=== PATIENT | female | born 1995 ===

== ENCOUNTER 2020-12-03 07:55 | Outpatient (CLI) | payer OTHER ==
[2020-12-03 18:22] LABS: SARS-CoV-2 PCR by NAA Not Detected (NotDetected)
== END 2020-12-03 07:56 | disposition home or self-care (01) ==
LOC: LABBT 07:55
PROVIDERS: ATTEND Obstetrics & Gynecology
DX: Z01.812 Encounter for preprocedural laboratory examination (principal); Z20.822 Contact with and (suspected) exposure to COVID-19
CPT/HCPCS: 87635; U0003; U0005

== ENCOUNTER 2020-12-06 19:30 | Inpatient (IN) | payer OTHER ==
[~2020-12-06 19:30] MED LIST: Bupivacaine HCl 0.25%/Epi 0.0005/PF 10 ML VIAL FS ONE
[2020-12-06] MEDS ORDERED: Promethazine HCl 25 MG/ML VIAL IM PRN (20:36)
[2020-12-06] MEDS ORDERED: hydrALAZINE 20 MG/ML VIAL SLOW IVP PRN (20:36)
[2020-12-06] MEDS ORDERED: Lidocaine 1% (PF) 30 ML VIAL SC PRN (20:36)
[2020-12-06] MEDS ORDERED: Acetaminophen/Codeine 30-300mg Tablet PO PRN ×2 (20:36)
[2020-12-06] MEDS ORDERED: NS / Oxytocin 40 units/1000ml 1,000 ML IV PRN (20:36)
[2020-12-06] MEDS ORDERED: Butorphanol Tartrate 1 MG/ML VIAL SLOW IVP PRN (20:36)
[2020-12-06] MEDS ORDERED: HYDROcodone/Acetaminophen 5/325 mg Tablet PO PRN (20:36)
[2020-12-06] MEDS ORDERED: Ibuprofen 800 MG TAB PO PRN (20:36)
[2020-12-06] MEDS: Lactated Ringer's 1,000 ML IV SCH (21:06)
[2020-12-06 21:26] LABS: Hemoglobin 13.4 g/dL (12.0-16.0); Mean Corpuscular HGB CONC 34.7 g/dL (32.0-36.0); Mean Corpuscular Hemoglobin 31.9 pg (27.0-31.0); Mean Corpuscular Volume 92.1 fL (78.0-98.0); Mean Platelet Volume 10.6 fL (7.4-10.4); Platelet Count 115 thou/uL (130-400); RBC Distribution Width 12.1 % (11.5-14.5); White Blood Cell (WBC) Count 10.1 thou/uL (4.8-10.8)
[2020-12-06] MEDS: NS w/ Oxytocin 30 units 500 ML IVPB SCH (21:41)
[2020-12-06 21:50] VITALS: BMI 29.2
[2020-12-06 22:03] LABS: Syphilis Antibody Nonreactive (Nonreactive); Syphilis Antibody Index 0.08 S/CO (<1.00 Non-Reactive)
[2020-12-06 23:00] LABS: HBSAg Index 0.19 S/CO (0-0.99); Hep B Surf Ag Non-Reactive S/CO (NonReactive)
--- NOTE | 2020-12-07 08:02 | PDOC.LDHP ---
Labor and Delivery H&P Chief complaint: scheduled induction (40 weeks IOL) HPI: Presents for IOL after valdez balloon placed in cervix in the office. Current gestational age (weeks): 40 Due date: 11/28/20 Grav: 1 Para: 0 Current complications: none Abnormal US findings: No Current medications: pre-nader vitamins Previous surgical history: none Allergies/Adverse Reactions: Allergies Allergy/AdvReac Type Severity Reaction Status Date / Time No Known Allergies Allergy Verified 12/06/20 21:11 Social history: none - Physical Exam Vital signs reviewed and normal: yes General: resting Heart: RRR Lungs: CTAB Abdomen: gravid Extremeties: no edema FHT: category 1 - Vaginal Exam cm dilated: 5 (arom w clear fluid on exam) Effacement: 50% Station: -1 - OB Labs Blood type: A RH: positive Antibody Screen: negative HIV: negative RPR: negative HEPSAg: negative 1 hour GCT: negative GBS: negative - Assessment L&D Assessment: elective induction at term - Plan Plan: admit to L&D -: IOL for 40.3 weeks, sp valdez bulb for mechanical dilation and ripening. AROM w clear fluid. Continue pitocin, FHT reassuring.
[2020-12-07] MEDS ORDERED: Fentanyl 4 mcg/Bup 0.1% Cadd 100 ML ONE ×3 (08:50→22:09)
[2020-12-07] MEDS ORDERED: Lactated Ringer's 500 ML IV PRN (09:28)
[2020-12-07] MEDS ORDERED: Naloxone HCl 0.4 mg/ml Vial IVP PRN ×2 (09:28)
[2020-12-07] MEDS ORDERED: diphenhydrAMINE 50 MG/ML VIAL IVP PRN (09:28)
[2020-12-07] MEDS ORDERED: Acetaminophen 325 MG TAB PO PRN (09:28)
[2020-12-07] MEDS ORDERED: Ondansetron PF 4 MG/2 ML Vial IVP PRN (09:28)
[2020-12-07] MEDS ORDERED: ePHEDrine 50 MG/ML VIAL SLOW IVP PRN (09:28)
[2020-12-07] MEDS ORDERED: Promethazine HCl 25 MG/ML VIAL IM PRN (09:28)
[2020-12-07] MEDS ORDERED: Communication Order-Pharmacy FS SCH (09:30)
[2020-12-07] MEDS: Lactated Ringer's 1,000 ML IV SCH ×2 (09:37→21:21)
[2020-12-07] MEDS: Ondansetron PF 4 MG/2 ML Vial IVP PRN ×2 (09:38→17:56)
[2020-12-07] MEDS: Fentanyl 4 mcg/Bupivacaine 0.1% Cassette 100 ML EPIDURAL SCH ×2 (15:45→15:46)
--- NOTE | 2020-12-07 17:10 | PDOC.LDPN ---
Labor & Delivery Progress Note - Subjective Subjective: comfortable - Objective Vital signs reviewed and normal: yes General: resting Dilation: 6 Effacement: 90% Station: -1 FHT: category 1 [place] contractions every: 2 IUPC placed: yes - Assessment (1) 40 weeks gestation of Code(s): Z3A.40 - 40 WEEKS GESTATION OF Current Visit: Yes Status: Acute Plan: continue plan of care -: Pt here for IOL. [place] balloon and AROM @ 0800 w SVE 4-5cm. At 1300 check pt cervix thin and anterior, consistent with labor. SVE now 5-6/90/-1 with minimal change suspected from the 1300 exam. Discussed continue to monitor, IUPC in place, pitocin @ 14 mu/min and FHT reassuring. Patient counseled to continue labor efforts at this time. RN will recheck in 2 hours and notify me of exam.
[2020-12-07] MEDS ORDERED: Calcium Carbonate 500 MG ChewTAB PO PRN (17:40)
[2020-12-07] MEDS: NS w/ Oxytocin 30 units 500 ML IVPB SCH (17:56)
[2020-12-08] MEDS: Fentanyl 4 mcg/Bupivacaine 0.1% Cassette 100 ML EPIDURAL SCH (02:36)
[2020-12-08] MEDS ORDERED: Misoprostol 200 MCG TAB ONE (03:09)
[2020-12-08] MEDS ORDERED: Methylergonovine 0.2 MG/ML VIAL ONE (03:10)
[2020-12-08] MEDS ORDERED: Carboprost 250 MCG/ML AMP ONE (03:10)
[2020-12-08] MEDS: NS w/ Oxytocin 30 units 500 ML IVPB SCH ×2 (03:32→04:14)
[2020-12-08] MEDS ORDERED: Lidocaine 1% (PF) 30 ML VIAL ONE (03:33)
--- NOTE | 2020-12-08 03:50 | PDOC.OPDEL ---
OB Operative/Delivery Note Delivery Dr/Surgeon: Juan Pre-Delivery Diagnosis: elective induction Procedure/Post Delivery Dx: spontaneous vaginal delivery Weeks gestation: 40 Anesthesia: epidural - Findings A Sex: male - Additional Findings/Plan Placenta delivered: spontaneous Repaired Obstetrical Laceration: right labial Estimated blood loss: 200ml Post delivery plan: routine recovery
[2020-12-08] MEDS ORDERED: hydrALAZINE 20 MG/ML VIAL SLOW IVP PRN (07:37)
[2020-12-08] MEDS ORDERED: Lanolin Ointment 7 GM TUBE TOP PRN (07:37)
[2020-12-08] MEDS ORDERED: Milk Of Magnesia 30 ML UDCUP PO PRN (07:37)
[2020-12-08] MEDS ORDERED: Bisacodyl 10 MG SUPP PR PRN (07:37)
[2020-12-08] MEDS ORDERED: diphenhydrAMINE 25 MG CAP PO PRN (07:37)
[2020-12-08] MEDS ORDERED: NS / Oxytocin 40 units/1000ml 1,000 ML IV SCH (07:37)
[2020-12-08] MEDS ORDERED: Benzocaine-Menthol 82.5 ML CAN TOP PRN (07:37)
[2020-12-08] MEDS ORDERED: HYDROcodone/Acetaminophen 5/325 mg Tablet PO PRN (07:37)
[2020-12-08] MEDS ORDERED: Ibuprofen 800 MG TAB PO SCH (07:45)
[2020-12-08] MEDS: Ferrous Sulfate 325 MG TAB PO SCH ×2 (08:01→15:38)
[2020-12-08] MEDS: Lactated Ringer's 1,000 ML IV SCH (08:02)
[2020-12-08] MEDS: Docusate Calcium (SURFAK) 240 MG CAP PO SCH ×2 (09:44→21:11)
[2020-12-08] MEDS: Prenatal Vitamin 1 TAB PO SCH (09:44)
[2020-12-08] MEDS: Ibuprofen 800 MG TAB PO SCH ×2 (12:37→21:11)
[2020-12-09] MEDS: Ibuprofen 800 MG TAB PO SCH ×2 (06:02→14:42)
[2020-12-09] MEDS: HYDROcodone/Acetaminophen 5/325 mg Tablet PO PRN ×2 (06:03→12:40)
[2020-12-09] MEDS ORDERED: Adacel (T-DAP) 0.5 ML SYRINGE IM ONE (07:37)
[2020-12-09] MEDS: Docusate Calcium (SURFAK) 240 MG CAP PO SCH (08:08)
[2020-12-09] MEDS: Prenatal Vitamin 1 TAB PO SCH (08:08)
[2020-12-09] MEDS: Ferrous Sulfate 325 MG TAB PO SCH (08:08)
[2020-12-09 08:11] VITALS: BP 105/55; TEMP 97.8
--- NOTE | 2020-12-09 08:22 | PDOC.PP ---
Post Progress Note Post Day #: 1 Subjective: doing well, well latching PO intake tolerated: yes Flatus: yes Ambulation: yes Vital Signs (12 hours) Temp Pulse Resp BP Pulse Ox 12/09/20 08:10 97.8 F 65 20 105/55 L 96 12/09/20 00:15 98.4 F 80 18 108/54 L Weight Weight 187 lb - Physical Examination General: NAD Respiratory: non-labored breathing Abdominal: no distention Skin: no rash Psychiatric: A&Ox3, normal affect Result Diagrams: 12/06/20 21:09 Additional Labs: Post Labs Hep Bs Antigen Non-Reactive S/CO (NonReactive) 12/06/20 21:09 Blood Type A POSITIVE 12/06/20 21:09 (1) 40 weeks gestation of Code(s): Z3A.40 - 40 WEEKS GESTATION OF Status: Acute - Assessment/Plan Pt is doing well, desires DC home today.
== END 2020-12-09 15:05 | disposition home or self-care (01) | DRG 807 ==
LOC: L&D 20:24 → 3SW 12-08 06:52
PROVIDERS: ADMIT Obstetrics & Gynecology; ATTEND Obstetrics & Gynecology
PROC: 10907ZC Drainage of Amniotic Fluid, Therapeutic from Products of Conception, Via Natural or Artificial Opening (ICD-10-PCS; 2020-12-06)
PROC: 0U7C7ZZ Dilation of Cervix, Via Natural or Artificial Opening (ICD-10-PCS; 2020-12-06)
PROC: 10H07YZ Insertion of Other Device into Products of Conception, Via Natural or Artificial Opening (ICD-10-PCS; 2020-12-07)
PROC: 10E0XZZ Delivery of Products of Conception, External Approach (ICD-10-PCS; principal; 2020-12-08)
PROC: 0HQ9XZZ Repair Perineum Skin, External Approach (ICD-10-PCS; 2020-12-08)
DX: O48.0 Post-term pregnancy (principal); Z37.0 Single live birth; Z3A.40 40 weeks gestation of pregnancy; Z23 Encounter for immunization; Z20.822 Contact with and (suspected) exposure to COVID-19; O70.0 First degree perineal laceration during delivery
CPT/HCPCS: 36415; 51702; 85027; 86780; 86850; 86900; 86901; 87340; 87635; J2001; J2405; J2590; U0003; U0005